=== PATIENT | male | born 1980 | race Hispanic/Latino ===

== ENCOUNTER 2016-09-10 19:51 | Emergency (ER) | payer OTHER ==
[2016-09-11 08:45] VITALS: BMI 30.4
== END 2016-09-10 20:24 | disposition left against medical advice (07) ==
LOC: ED 19:51
DX: Z02.89 Encounter for other administrative examinations (principal); R00.2 Palpitations

== ENCOUNTER 2016-09-11 08:38 | Emergency (ER) | payer OTHER ==
[2016-09-11 08:45] VITALS: BMI 30.4
[2016-09-11 08:50] VITALS: RESP 18; TEMP 98.4
--- NOTE | 2016-09-11 09:28 | ED PDOC ---
Arrival/HPI - General Chief Complaint: Anxiety Time Seen by Provider: 09/11/16 09:14 Historian: Patient - History of Present Illness Narrative History of Present Illness (Text): 09/11/16 09:19 This 36 yo male presents to this emergency department stating he does not feel well, and he feels anxious. Patient is requesting IVF. ER triage noted Dr. Ayala had sent patient to emergency department for evaluation. Patient denies SI, or HI. Denies hallucination, or paranoia. Time/Duration: Other (chronic) Context: Home Past Medical History - Provider Review Nursing Documentation Reviewed: Yes - Psychiatric Hx Anxiety: Yes Hx Substance Use: No Family/Social History - Physician Review Nursing Documentation Reviewed: Yes Family/Social History: No Known Family HX Smoking Status: Unknown If Ever Smoked Hx Alcohol Use: No Hx Substance Use: No Allergies/Home Meds Allergies/Adverse Reactions: Allergies No Known Allergies Allergy (Verified 09/12/16 01:20) Home Medications: Home Meds Medication Instructions Recorded Confirmed No Known Home Med 09/11/16 09/12/16 Review of Systems - Review of Systems Constitutional: Normal. absent: Fatigue, Weight Change, Fevers Eyes: Normal ENT: Normal Respiratory: Normal. absent: SOB, Cough, Sputum Cardiovascular: Normal. absent: Chest Pain Gastrointestinal: Normal. absent: Abdominal Pain, Nausea, Vomiting Genitourinary Male: Normal. absent: Dysuria, Frequency, Hematuria Musculoskeletal: Normal. absent: Back Pain Skin: Normal. absent: Rash Neurological: Normal. absent: Headache, Dizziness Endocrine: Normal Hemo/Lymphatic: Normal Psychiatric: Normal Physical Exam Vital Signs Temp Pulse Resp BP Pulse Ox 09/11/16 11:22 77 18 148/82 96 09/11/16 10:02 85 18 150/95 H 96 09/11/16 08:39 98.4 F 125 H 18 171/88 H 100 Temperature: Afebrile Blood Pressure: Normal Pulse: Regular Respiratory Rate: Normal Appearance: Positive for: Well-Appearing, Non-Toxic, Comfortable Pain Distress: None Mental Status: Positive for: Alert and Oriented X 3 - Systems Exam Head: Present: Atraumatic, Normocephalic Pupils: Present: PERRL Extroacular Muscles: Present: EOMI Conjunctiva: Present: Normal Mouth: Present: Moist Mucous Membranes Neck: Present: Normal Range of Motion Respiratory/Chest: Present: Clear to Auscultation, Good Air Exchange. No: Respiratory Distress, Accessory Muscle Use Cardiovascular: Present: Regular Rate and Rhythm, Normal S1, S2. No: Murmurs Abdomen: Present: Normal Bowel Sounds. No: Tenderness, Distention, Peritoneal Signs Back: Present: Normal Inspection Upper Extremity: Present: Normal Inspection. No: Cyanosis, Edema Lower Extremity: Present: Normal Inspection. No: Edema Neurological: Present: GCS=15, CN II-XII Intact, Speech Normal Skin: Present: Warm, Dry, Normal Color. No: Rashes Psychiatric: Present: Alert, Oriented x 3, Depressed Mood. No: Suicidal Ideation, Homicidal Ideation, Delusional, Hallucinations, Intoxicated Medical Decision Making ED Course and Treatment: 09/11/16 10:27 Anna Guillermo PES screener examined patient. She stated patient had additional complains to her including chest pain. I had ordered EKG which shows NSR at 86 bpm. CXR was read as normal as per radiologist. PES screener clear patient to be discharged. Patient was given information from PES screener. Re-evaluation Time: 11:08 Reassessment Condition: Re-examined, Improved - Lab Interpretations Lab Results: 09/11/16 10:01 09/11/16 10:01 Lab Results 09/11/16 10:01: Urine Opiates Screen Negative, Urine Methadone Screen Negative, Ur Barbiturates Screen Negative, Ur Phencyclidine Scrn Negative, Ur Amphetamines Screen Negative, U Benzodiazepines Scrn Positive H, U Oth Cocaine Metabols Negative, U Cannabinoids Screen Negative 09/11/16 10:01: Alcohol, Quantitative < 10 09/11/16 10:01: Salicylates < 1 L, Acetaminophen < 10.0 L 09/11/16 10:01: Sodium 139, Potassium 3.8, Chloride 99, Carbon Dioxide 25, Anion Gap 19, BUN 14, Creatinine 1.0, Est GFR ( Amer) > 60, Est GFR (Non- Af Amer) > 60, Random Glucose 114 H, Calcium 9.8, Total Bilirubin 1.1, AST 20, ALT 36, Alkaline Phosphatase 75, Total Protein 8.6 H, Albumin 4.9 H, Globulin 3.8, Albumin/Globulin Ratio 1.3 09/11/16 10:01: Urine Color Yellow, Urine Appearance Sl cloudy, Urine pH 5.5, Ur Specific [place] >= 1.030, Urine Protein Negative, Urine Glucose (UA) Negative, Urine Ketones 40 H, Urine Blood Moderate H, Urine Nitrate Negative, Urine Bilirubin Small H, Urine Urobilinogen 0.2, Ur Leukocyte Esterase Negative , Urine RBC 1 - 3, Urine WBC Negative, Ur Epithelial Cells 0 - 2, Urine Bacteria Small, Urine Other Mucus 09/11/16 10:01: WBC 9.6, RBC 4.99, Hgb 15.3, Hct 43.4, MCV 87.0, MCH 30.7, MCHC 35.3, RDW 14.5, Plt Count 255, MPV 10.1, Gran % 90.6 H, Lymph % (Auto) 5.3 L, [place] % (Auto) 3.9, Eos % (Auto) 0.0 L, Baso % (Auto) 0.2, Gran # 8.70 H, Lymph # 0.5 L, [place] # 0.4, Eos # 0.0, Baso # 0.02 I have reviewed the lab results: Yes Interpretation: Abnormal lab values (mild hematuria) - RAD Interpretation Narrative RAD Interpretations (Text): 09/11/16 10:30 Accession No. : [id number] Patient Name / ID : SHEEBA BALDERAS / [id number] Exam Date : 09/11/2016 09:43:09 ( Approved ) Study Comment : Sex / Age : M / 36Y Creator : Gilma Sim MD Dictator : Gilma Sim MD Blasting Entryman : Medical Billing Associate : Gilma Sim MD Approver2 : Report Date : 09/11/2016 10:15:51 My Comment : PROCEDURE: CHEST RADIOGRAPH, 1 VIEW HISTORY: PES eval COMPARISON: None. FINDINGS: LUNGS: Clear. PLEURA: No pneumothorax or pleural fluid seen. CARDIOVASCULAR: Normal. OSSEOUS STRUCTURES: No significant abnormalities. VISUALIZED UPPER ABDOMEN: Normal. OTHER FINDINGS: None. IMPRESSION: Clear lungs. Please note that chest radiographs have low sensitivity for small pulmonary nodules. If indicated, chest CT should be obtained. Radiology Orders: 09/11/16 09:30 CHEST PORTABLE [RAD] Stat - EKG Interpretation Interpreted by ED Physician: Yes (NSR@ 86bpm. Normal interval, No ST changes) Type: 12 lead EKG Comparison: No previous EKG avail. Disposition/Present on Arrival - Present on Arrival Any Indicators Present on Arrival: No History of DVT/PE: No History of Uncontrolled Diabetes: No Urinary Catheter: No History of Decub. Ulcer: No History Surgical Site Infection Following: None - Disposition Have Diagnosis and Disposition been Completed?: Yes Diagnosis: Anxiety, Hematuria Disposition: HOME/ ROUTINE Disposition Time: 11:01 Patient Plan: Discharge Patient Problems: Current Active Problems Problem Status Onset Anxiety Acute Paranoid Acute Condition: GOOD Discharge Instructions (ExitCare): Generalized Anxiety Disorder (ED), Acute Hematuria (ED) Additional Instructions: Call private doctor for follow up visit in 1-2 days. Continue with home medication, and Call Dr. Ayala. Return to emergency if symptoms worsen. Referrals: [employer] [facility], [Non-Staff] - Follow up with primary Oseas Ayala MD [Staff Provider] - Follow up with primary Parker Suazo MD [Staff Provider] - Follow up with primary
[2016-09-11 10:03] LABS: ADD MANUAL DIFF? NO
[2016-09-11 10:09] VITALS: O2SAT 96
[2016-09-11 10:17] LABS: ALB/GLOB RATIO 1.3 (1.1-1.8); ALKALINE PHOSPHATASE 75 U/L (38-133); ALT/SGPT 36 U/L (7-56); AST/SGOT 20 U/L (15-59); BILIRUBIN,TOTAL 1.1 mg/dL (0.2-1.3); BLOOD UREA NITROGEN 14 mg/dL (7-21); CALCIUM 9.8 mg/dL (8.4-10.5); CARBON DIOXIDE 25 mmol/L (21-33); CHLORIDE 99 mmol/L (98-107); GFR AFRICAN-AMERICAN > 60; GLUCOSE,RANDOM 114 mg/dL (70-110); POTASSIUM 3.8 mmol/L (3.6-5.0); SODIUM 139 mmol/L (132-148); TOTAL PROTEIN 8.6 g/dL (5.8-8.3)
--- NOTE | 2016-09-11 10:17 | RAD ---
PROCEDURE: CHEST RADIOGRAPH, 1 VIEW HISTORY: PES eval COMPARISON: None. FINDINGS: LUNGS: Clear. PLEURA: No pneumothorax or pleural fluid seen. CARDIOVASCULAR: Normal. OSSEOUS STRUCTURES: No significant abnormalities. VISUALIZED UPPER ABDOMEN: Normal. OTHER FINDINGS: None. IMPRESSION: Clear lungs. Please note that chest radiographs have low sensitivity for small pulmonary nodules. If indicated, chest CT should be obtained.
[2016-09-11 10:27] LABS: BASO # 0.02 K/mm3 (0.0-2.0); BASO % 0.2 % (0.0-3.0); GRAN % 90.6 % (50.0-68.0); HEMATOCRIT 43.4 % (42.0-52.0); LYMPH # 0.5 (1.2-3.4); LYMPH % 5.3 % (22.0-35.0); MEAN CORPUSCULAR HEMOGLOBIN 30.7 pg (25.0-35.0); MEAN CORPUSCULAR HGB CONC 35.3 g/dl (31.0-37.0); MEAN PLATELET VOLUME 10.1 fl (7.0-11.0); MONO # 0.4 (0.1-0.6); MONO % 3.9 % (1.0-6.0); PLATELET COUNT 255 10^3/uL (120.0-450.0); RED CELL DISTRIBUTION WIDTH 14.5 % (11.5-14.5); WHITE BLOOD COUNT 9.6 10^3/ul (4.5-11.0)
[2016-09-11 10:29] LABS: PH,URINE 5.5 (4.7-8.0); URINE BILIRUBIN SMALL (NEGATIVE); URINE BLOOD MODERATE (NEGATIVE); URINE GLUCOSE (UA) NEGATIVE (NEGATIVE); URINE KETONE 40 mg/dL (NEGATIVE); URINE LEUKOCYTE ESTERASE NEGATIVE Leu/uL (NEGATIVE); URINE PROTEIN NEGATIVE mg/dL (<30 mg/dL); URINE UROBILINOGEN 0.2 E.U./dL (<1 E.U./dL)
[2016-09-11 10:34] LABS: URINE APPEARANCE SL CLOUDY (CLEAR); URINE BACTERIA SMALL (NEG); URINE COLOR YELLOW (YELLOW); URINE EPITHELIAL CELLS 0 - 2 /hpf (0-5); URINE WBC NEGATIVE /hpf (0-6)
[2016-09-11 11:23] VITALS: BP 148/82; PULSE 77
--- NOTE | 2016-09-12 10:14 | CARD ---
APPROVED REPORT EKG Measurement Heart [id number] <Conclusion> Normal sinus rhythm Normal ECG
== END 2016-09-11 11:20 | disposition home or self-care (01) ==
LOC: ED 08:38
DX: F41.9 Anxiety disorder, unspecified (principal); R31.9 Hematuria, unspecified

== ENCOUNTER 2016-09-11 18:48 | Inpatient (IN) | payer MEDICAID, OTHER ==
[2016-09-11 18:48] VITALS: BMI 30.4
--- NOTE | 2016-09-11 19:12 | ED PDOC ---
Arrival/HPI - General Chief Complaint: Anxiety Time Seen by Provider: 09/11/16 18:49 Historian: Patient - History of Present Illness Narrative History of Present Illness (Text): 09/11/16 19:26 36 y/o male, no pmh, psychiatric history of possible anxiety/drug abuse, nkda, complaining of anxiety with the chest pain started today. Pt. stated that he was seen here earlier, seen by the pes and discharge home, stated that he feels anxious and causing him the chest pain, no palpitation, no night sweat, numbness or tingling, no palpitation, no rash, no other medical or psychological complaints. 09/11/16 21:20 Pt. is send in by the psychiatrist DR. Colon due to the agitation and paranoid behavior, here for the admission. Past Medical History - Provider Review Nursing Documentation Reviewed: Yes - Infectious Disease Hx of Infectious Diseases: None - Cardiac Hx Cardiac Disorders: No - Pulmonary Hx Tuberculosis: No - Neurological HX Cerebrovascular Accident: No Hx Seizures: No - Hematological/Oncological Hx Cancer: No - Genitourinary/Gynecological Hx Sexually Transmitted Diseases: No - Psychiatric Hx Anxiety: Yes Hx Substance Use: No Family/Social History - Physician Review Nursing Documentation Reviewed: Yes Family/Social History: Unknown Family HX Smoking Status: Unknown If Ever Smoked Hx Alcohol Use: No Hx Substance Use: No Allergies/Home Meds Allergies/Adverse Reactions: Allergies No Known Allergies Allergy (Verified 09/12/16 01:20) Home Medications: Home Meds Medication Instructions Recorded Confirmed No Known Home Med 09/11/16 09/12/16 Review of Systems - Review of Systems Constitutional: absent: Fatigue, Fevers Eyes: absent: Vision Changes ENT: absent: Hearing Changes Respiratory: absent: SOB, Cough Cardiovascular: Chest Pain Gastrointestinal: absent: Abdominal Pain, Nausea, Vomiting Genitourinary Male: absent: Dysuria, Frequency, Hematuria Musculoskeletal: absent: Arthralgias, Back Pain, Neck Pain Skin: absent: Rash, Pruritis, Skin Lesions Neurological: absent: Headache, Dizziness, Focal Weakness, Gait Changes, Facial Droop Psychiatric: Anxiety. absent: Depression, Suicidal Ideation Physical Exam Vital Signs Reviewed: Yes Vital Signs Temp Pulse Resp BP Pulse Ox 09/11/16 23:58 78 15 157/90 H 98 09/11/16 22:54 70 18 164/85 H 99 09/11/16 21:01 71 16 146/102 H 94 L 09/11/16 18:48 98.1 F 83 18 158/101 H 98 Temperature: Afebrile Blood Pressure: Hypertensive Pulse: Regular Respiratory Rate: Normal Appearance: Positive for: Well-Appearing, Non-Toxic, Uncomfortable Pain Distress: Moderate Mental Status: Positive for: Alert and Oriented X 3 - Systems Exam Head: Present: Atraumatic, Normocephalic Pupils: Present: PERRL Extroacular Muscles: Present: EOMI Conjunctiva: Present: Normal Mouth: Present: Moist Mucous Membranes Neck: Present: Normal Range of Motion Respiratory/Chest: Present: Clear to Auscultation, Good Air Exchange. No: Respiratory Distress, Accessory Muscle Use Cardiovascular: Present: Regular Rate and Rhythm, Normal S1, S2. No: Murmurs Abdomen: Present: Tenderness (+epigastric tenderness, negative lopez signs, no flank tenderness. ), Normal Bowel Sounds. No: Distention, Peritoneal Signs Back: Present: Normal Inspection Upper Extremity: Present: Normal Inspection. No: Cyanosis, Edema Lower Extremity: Present: Normal Inspection. No: Edema Neurological: Present: GCS=15, CN II-XII Intact, Speech Normal, Motor Func Grossly Intact, Gait Normal, Memory Normal Skin: Present: Warm, Dry, Normal Color. No: Rashes Lymphatic: No: Cervical Adenopathy Psychiatric: Present: Alert, Oriented x 3, Normal Insight, Normal Concentration , Anxious Medical Decision Making ED Course and Treatment: 09/11/16 19:12 -Labs reviewed from today's earlier visit, UDS show +benzo, will add additional labs. -didimer/troponin -pepcid and ativan with IVF -chest x-ray -EKG: NSR @ 87 BPM, no ST elevation or depression, no T wave inversion, compared with previous ekg. -Chest xray show -Labs 09/11/16 19:49 -pt. refused lab works, request medications first, pepcid po and ativan 1mg IM 09/11/16 21:24 -Pt. agreed to have the blood work. -I received the call from the psychiatrist Dr. colon and the aunt, stated that the patient has been very paranoid and agitated at home, will need evaluation. this is the second time the patient is in the ER for the same psychological complaints, will need further evaluation. 09/11/16 21:52 -Pt. feels much better. -Dimer negative, troponin negative, Thyroid profile negative. -Pt.is medically stable and clear for the PES evaluation -MATIAS Valera is aware and will come to screen the patient. 09/11/16 22:54 -MATIAS Valera evaluated the patient, spoke to Dr. Colon, suggest admission for paranoid/anxiety behavior. Pt. agreed to be admitted. -I discussed with Dr. De Souza, he will put in the admission. - Lab Interpretations Lab Results: Lab Results 09/11/16 20:50: Free T4 0.94, TSH 3rd Generation 1.21, Alcohol, Quantitative < 10 09/11/16 20:50: D-Dimer, Quantitative 0.19 09/11/16 20:50: Lactate Dehydrogenase 446, Total Creatine Kinase 90, Troponin I < 0.01 I have reviewed the lab results: Yes Interpretation: No clinic. lab abnormalty - RAD Interpretation Radiology Orders: 09/11/16 19:11 CHEST PORTABLE [RAD] Stat no active disease Clinic Assistant: Radiologist - Medication Orders Current Medication Orders: Acetaminophen (Tylenol 325mg Tab) 650 mg PO Q4H PRN PRN Reason: Pain, Mild (1-3) Clonazepam (Klonopin) 1 mg PO AMHS GRABIEL PRN Reason: Protocol Last Admin: 09/12/16 09:30 Dose: Not Given Non-Admin Reason: Patient Refused Lorazepam (Ativan) 0.5 mg PO Q4H PRN; Protocol PRN Reason: Anxiety Magnesium Hydroxide (Milk Of Magnesia) 30 ml PO DAILY PRN PRN Reason: Constipation Risperidone (Risperdal Tab) 2 mg PO AMHS GRABIEL PRN Reason: Protocol Last Admin: 09/12/16 09:30 Dose: Not Given Non-Admin Reason: Patient Refused Zolpidem Tartrate (Ambien) 10 mg PO HS PRN; Protocol PRN Reason: Insomnia Discontinued Medications Famotidine (Pepcid) 20 mg PO STAT STA Stop: 09/11/16 19:50 Last Admin: 09/11/16 20:05 Dose: 20 mg Sodium Chloride (Sodium Chloride 0.9%) 1,000 mls @ 999 mls/hr IV .Q1H1M STA Stop: 09/11/16 20:20 Last Admin: 09/11/16 21:01 Dose: Not Given Non-Admin Reason: Patient Refused Lorazepam (Ativan) 1 mg PO ONCE ONE PRN Reason: Protocol Stop: 09/11/16 19:52 Last Admin: 09/11/16 20:05 Dose: 1 mg Re-Assess: Reassess Psych Meds Document 09/11/16 21:05 DCP (Rec: 09/12/16 01:53 DCP [id number]) Reassess Psych Med Effective Re-Assess: MAR Pain Assessment Document 09/12/16 00:18 [facility] (Rec: 09/12/16 00:19 [id number] Pain Reassessment Is this a pain reassessment? No Description Pain not relieved and LIP/MD was pt had a postive results with notified ativan - PA / LAWN CARE SPECIALIST / Resident Statement MD/DO has reviewed & agrees with the documentation as recorded. Disposition/Present on Arrival - Present on Arrival Any Indicators Present on Arrival: No History of DVT/PE: No History of Uncontrolled Diabetes: No Urinary Catheter: No History of Decub. Ulcer: No History Surgical Site Infection Following: None - Disposition Have Diagnosis and Disposition been Completed?: Yes Diagnosis: Paranoid, Anxiety Disposition: HOSPITALIZED Disposition Time: 21:53 Patient Plan: Admission Patient Problems: Current Active Problems Problem Status Onset Anxiety Acute Paranoid Acute Condition: STABLE
[2016-09-11] MEDS ORDERED: Sodium Chloride 0.9% 1,000 ML IV STA (19:20)
[2016-09-11 21:30] LABS: ALCOHOL SERUM < 10 mg/dL (0-10)
[2016-09-11 21:42] LABS: TROPONIN I < 0.01 ng/mL
[2016-09-11 21:45] LABS: FREE T4 0.94 ng/dL (0.78-2.19)
[2016-09-11 21:59] LABS: THYROID STIMULATING HORMONE 1.21 mIU/mL (0.46-4.68)
[2016-09-12] VITALS: O2SAT 98
[2016-09-12] MEDS ORDERED: Magnesium Hydroxide Susp 30 ml UD PO PRN (01:26)
[2016-09-12 08:37] LABS: CHOLESTEROL 231 mg/dL (130-200); GLUCOSE,FASTING 95 mg/dL (65-110)
--- NOTE | 2016-09-12 09:09 | RAD ---
PROCEDURE: CHEST RADIOGRAPH, 1 VIEW HISTORY: medical clearance COMPARISON: 09/11/2016 FINDINGS: LUNGS: Clear. PLEURA: No pneumothorax or pleural fluid seen. CARDIOVASCULAR: Normal. OSSEOUS STRUCTURES: No significant abnormalities. VISUALIZED UPPER ABDOMEN: Normal. OTHER FINDINGS: None. IMPRESSION: Clear lungs. No significant interval change.
[2016-09-12 09:10] LABS: TROPONIN I < 0.01 ng/mL
--- NOTE | 2016-09-12 10:08 | HP ---
The patient is a single 36-year-old white male with a history of anxiety, paranoia, opiate abuse, 3 p rior hospitalizations (most recently [facility] a couple months ago), no suicide attempts, cur rently in treatment with Dr. Ayala the past few months. However, noncompliant with prescribed medic ation of Klonopin who was admitted from the ER yesterday by Dr. Ayala to treat anxiety, agitation an d paranoid behavior. I reviewed recent notes and met with patient at bedside. He is oriented to tue and year and superficially oriented to circumstances. Does not appear entirely engaged with my qu estioning. However, he is responsive and responses are generally relevant to questioning. Indicates that he was admitted for anxiety and cannot given an explanation why he did not take the medication prescribed by Dr. Ayala. He denies any drug or alcohol use prior to admission that could have been contributing to his symptoms. His affect is a little oddly related and preoccupied. However, he den ies having any hallucinations. He also denies having paranoia at this time. There have been no beha vioral issues on the unit, but he has been noted to be thought blocked or guarded with staff members as well as this provider. Thus far, he denies having any side effects from his medications or any di scomfort or pain, and is agreeable to treatment with Klonopin and Risperdal. PAST PSYCHIATRIC HISTORY: The patient reports 3 prior hospitalizations, most recently hospitalized a couple of months ago at [facility]. The patient reports that he was being treated for opiate abuse. The patient denies any history of suicide attempts. The patient has currently been in treat ment with Dr. Ayala for the last few months and being prescribed Klonopin, which he has not been ricco ing. The patient cannot recall any other medication trials. SOCIAL HISTORY: The patient was born and raised in [place]. He is single without any children an d he lives with his mother. He indicates that he graduated from high school and college, and he is c urrently unemployed. He denies any current drug or alcohol or tobacco issues, but does report that h e abused opiates, but has not taken any "in a while." The patient does not want to quantify his last use to this provider. CURRENT VITAL SIGNS: 98.2, 90, 133/84 and 20. These were taken at 7:09 a.m. RECENT LABORATORIES: Include on 09/12/2016, fasting glucose is 95, lactate dehydrogenase of 308, whic h is low. Total creatine kinase of 61 and troponins were less than 0.01 on 09/11 and 09/12. Triglycerides are 91, cholesterol is 231, which is elevated, LDL was 55, which is elevated, HDL was 4 0, which is normal limits. Free T4 is 0.94, which is normal. TSH third generation is 1.21, which is normal. Toxicology showed an alcohol less than 10. Please note that also on 09/11, CBC showed normal white blood cell, hemoglobin, hematocrit and platele t count. Chemistry on 09/11/2016 was within normal limits that is including LFTs. Toxicology was onl y positive for benzodiazepine on 09/11/2016. CURRENT MEDICATIONS: Klonopin 1 mg a.m. and at bedtime, Risperdal 2 mg a.m. and at bedtime, Ambien 1 0 mg at bedtime p.r.n. IMPRESSION: Anxiety disorder, not otherwise specified; psychosis, not otherwise specified; rule out paranoid schizophrenia; history of opiate abuse versus dependency. PLAN: 1. Group milieu and supportive therapy. 2. Will continue with Klonopin 1 mg a.m. and at bedtime for complaints of anxiety. 3. Will continue with Risperdal 2 mg a.m. and at bedtime for reported complaints of paranoia prior t o admission. 4. Will continue with Ambien 10 mg at bedtime p.r.n. for insomnia. 5. We are currently awaiting medical followup. Abdiel Lyman MD cc: [id number] TT: 09/12/2016 10:07:25 en
--- NOTE | 2016-09-12 10:35 | CARD ---
APPROVED REPORT EKG Measurement Heart [id number] <Conclusion> Normal sinus rhythm LVH by voltage PWNL No change
--- NOTE | 2016-09-12 10:58 | CP.PCM.HP ---
History of Present Illness - History of Present Illness History of Present Illness: MEDICAL CONSULTATION CC: "Chest pain, palpitations, panic attack" HPI: This is a 36 year old male with past medical history of anxiety who presented with complaint of left sided chest pain along with palpitations and anxiety. He states he has history of panic attacks and anxiety and usually these symptoms are associated with it. He denies any past medical or cardiac history. He denies any shortness of breath, abdominal pain, nausea or vomiting. He denies any dyspnea on exertion, LE edema or lightheadedness. He denies excessive caffeine intake or history of drugs or alcohol abuse. Patient seen and examined in his room in the psychiatric unit. He is not very conversive and answers with one or two words for most answers. He states his chest pain and palpitations has resolved. He denies any depression or thoughts of harming himself. PMH: anxiety PSH: denies Family History: denies any family history of cardiac disease Social History: unemployed; lives with mother; denies smoking, alcohol or illicit drug use Present on Admission - Present on Admission Any Indicators Present on Admission: No Review of Systems - Review of Systems All systems: reviewed and no additional remarkable complaints except - Constitutional Constitutional: absent: Anorexia, Chills - EENT Eyes: absent: Change in Vision Ears: absent: Dizziness - Cardiovascular Cardiovascular: As Per HPI, Chest Pain, Palpitations. absent: Dyspnea, Edema, Lightheadedness - Respiratory Respiratory: absent: Cough, Dyspnea - Gastrointestinal Gastrointestinal: absent: Abdominal Pain, Nausea, Vomiting - Genitourinary Genitourinary: absent: Dysuria - Musculoskeletal Musculoskeletal: absent: Back Pain - Neurological Neurological: absent: Dizziness, Numbness, Tremor, Weakness - Psychiatric Psychiatric: Anxiety, Panic Attacks Past Patient History - Infectious Disease Hx of Infectious Diseases: None - Past Social History Smoking Status: Never Smoked Alcohol: None Drugs: Denies Home Situation {Lives}: With Family - CARDIAC Hx Cardiac Disorders: No - PULMONARY Hx Tuberculosis: No - NEUROLOGICAL HX Cerebrovascular Accident: No Hx Seizures: No - HEENT Hx HEENT Problems: No - RENAL Hx Chronic Kidney Disease: No - ENDOCRINE/METABOLIC Hx Endocrine Disorders: No - HEMATOLOGICAL/ONCOLOGICAL Hx Cancer: No - INTEGUMENTARY Hx Dermatological Problems: No - MUSCULOSKELETAL/RHEUMATOLOGICAL Hx Musculoskeletal Disorders: No - GASTROINTESTINAL Hx Gastrointestinal Disorders: No - GENITOURINARY/GYNECOLOGICAL Hx Sexually Transmitted Disorders: No - PSYCHIATRIC Hx Anxiety: Yes Hx Substance Use: No - SURGICAL HISTORY Hx Surgeries: No - ANESTHESIA Hx Anesthesia: No Meds Allergies/Adverse Reactions: Allergies Allergy/AdvReac Type Severity Reaction Status Date / Time No Known Allergies Allergy Verified 09/12/16 01:20 Physical Exam - Constitutional Appears: Well, No Acute Distress - Head Exam Head Exam: NORMAL INSPECTION - Eye Exam Eye Exam: EOMI - ENT Exam ENT Exam: Normal Exam - Neck Exam Neck exam: Positive for: Full Rom - Respiratory Exam Respiratory Exam: Clear to Auscultation Bilateral. absent: Rales, Wheezes - Cardiovascular Exam Cardiovascular Exam: REGULAR RHYTHM, +S1, +S2 - GI/Abdominal Exam GI & Abdominal Exam: Normal Bowel Sounds, Soft. absent: Organomegaly, Tenderness - Extremities Exam Extremities exam: Positive for: normal inspection - Neurological Exam Neurological exam: Alert, Oriented x3 - Psychiatric Exam Psychiatric exam: Normal Affect, Normal Mood Results - Vital Signs Recent Vital Signs: Last Vital Signs Temp 98.2 F 09/12/16 07:09 Pulse 90 09/12/16 07:09 Resp 20 09/12/16 07:09 BP 133/84 09/12/16 07:09 Pulse Ox 98 09/11/16 23:58 - Labs Labs: Laboratory Results - last 24 hr 09/12/16 08:00 Fasting Glucose 95 Lactate Dehydrogenase 308 L Total Creatine Kinase 61 Troponin I < 0.01 Triglycerides 91 Cholesterol 231 H LDL Cholesterol Direct 155 H HDL Cholesterol 50 - EKG Data EKG Interpreted by: Myself - EKG Data EKG comments: NSR at [address]-t changes Assessment & Plan - Assessment and Plan (Free Text) Plan: 36 year old male with past medical history of anxiety who presented with complaint of chest pain associated with anxiety and palpitations. 1. Atypical chest with palpitations - Resolved. Serial cardiac enzymes x 2 are negative. EKG does not show any acute ST-T changes. D-dimer was negative and TFTs are normal. Alcohol level was negative Utox was positive only for benzodiazepines. Symptoms possibly related to panic attacks / anxiety. Will obtain one more cardiac enzyme this afternoon and check an echocardiogram. 2. Anxiety / panic attacks - Continue with management as per psychiatrist. Patient is currently on klonopin and ativan prn. 3. Dyslipidemia - Cholesterol 231. LDL 155. HDL 50. Counselled on diet modifications with low fat, low cholesterol diet. Recommend to repeat lipid panel in 3-6 months. If LDL still elevated despite diet modifications can start statin. Thank you Dr. Ayala for allowing us to participate in the care of this patient.
[2016-09-12 17:32] LABS: TROPONIN I < 0.01 ng/mL
--- NOTE | 2016-09-13 15:34 | PCM.PYCHPN ---
Psychiatric Progress Note - Psychiatric Progress Note Patient seen today, length of contact: 35 Patient Chief Complaint: anxiety, depression, paranoia Problems Identified/Issues Discussed: Patient had initially complained of palpitations and anxiety Medical Problems: Has suffered a number of cerebral injuries (loss of consciousness ((or concussions). Has had several orthopedic surgeries on hip Diagnostic Results: As noted in chart DSM 5 Symptoms Update: Seems less anxious than described on admission, affect somewhat brighter, is more compliant with the medication. Did not overtly psychotic. Not confused. Medication Change: No Medical Record Reviewed: Yes Consults ordered or reviewed: Review Mental Status Examination - Cognitive Function Orientation: Person, Place, Situation, Time Memory: Intact Attention: Poor Concentration: WNL Association: [facility] Fund of Knowledge: [facility] Decription of patient's judgement and insights: Marginal - Mood Mood: Anxious - Affect Affect: Blunted - Speech Speech: Appropriate - Formal Thought Process Formal Thought Process: No Impairment Psychotic Thoughts and Behaviors: Surgeon, patient somewhat guarded and can be paranoid Additional comments: Not presently - Suicidal Ideation Suicidal Ideation: No - Homicidal Ideation Homicidal Ideation: No Goal/Treatment Plan - Goal/Treatment Plan Need for Continued Stay: Remain at risks for inpatient hospitalization, Severe depression anxiety, Discharge may exacerbated symptoms Progress Toward Problem(s) and Goals/Treatment Plan: Mood, affect, and paranoia improving. Seems to be more focused cognitively. Still has trouble excepting the need for medication but is compliant with medication presently. - Smoking Cessation Smoking Cessation Initiated: Yes
--- NOTE | 2016-09-14 19:59 | CARD ---
APPROVED REPORT EXAM: Two-dimensional and M-mode echocardiogram with Doppler and color Doppler. INDICATION LV Function:SystolicDiastolic 2D DIMENSIONS Left Atrium (2D)3.4 (1.6-4.0cm)IVSd1.1 (0.7-1.1cm) LVDd5.6 (3.9-5.9cm)PWd1.2 (0.7-1.1cm) LVDs3.8 (2.5-4.0cm)FS (%) 32.9 % LVEF (%)50.0 (>50%) M-Mode DIMENSIONS Aortic Root3.80 (2.2-3.7cm)Aortic Cusp Exc.2.50 (1.5-2.0cm) Aortic Valve AoV Peak Iqspqucm886.0cm/Shweta Peak GR.6mmHg Mitral Valve MV E Tjlfoloq04.1cm/sMV A Ajapsndt83.7cm/sE/A ratio0.9 TDI E/Lateral E'0.0E/Medial E'0.0 Tricuspid Valve TR Peak Sandgyei385ze/sRAP [id number] Peak Gr.17mmHg [id number] LEFT VENTRICLE The left ventricle is normal size. There is normal left ventricular wall thickness. Left ventricle ejection fraction is borderline. There is normal LV segmental wall motion. Transmitral Doppler flow pattern is Grade I-abnormal relaxation pattern. RIGHT VENTRICLE The right ventricle is normal size. There is normal right ventricular wall thickness. The right ventricular systolic function is normal. ATRIA The left atrium size is normal. The right atrium size is normal. AORTIC VALVE The aortic valve is normal in structure. No aortic regurgitation is present. MITRAL VALVE The mitral valve is normal in structure. There is no mitral valve regurgitation noted. TRICUSPID VALVE There is no pulmonary hypertension. GREAT VESSELS The aortic root is normal in size. The IVC is normal in size and collapses >50% with inspiration. PERICARDIAL EFFUSION There is no pericardial effusion. <Conclusion> The left ventricle is normal size. There is normal left ventricular wall thickness. Left ventricle ejection fraction is borderline. Transmitral Doppler flow pattern is Grade I-abnormal relaxation pattern.
--- NOTE | 2016-09-15 02:04 | PN ---
DATE: 09/14/2016 The patient has signed out against medical advice (a 48-hour notice). He has been noted to be pacing in the hallway and hypervigilant, while denying such. The patient remains reluctant to take his medication, but does so with encouragement. He is being maintained psychotropically on Klonopin 1 mg a.m. and at bedtime, Risperdal 2 mg a.m. and at bedtime. Blood pressure 102/64, pulse 97, temperature 97.7, respiratory rate 20. Oseas Ayala MD, PhD cc: [id number] TT: 09/15/2016 01:38:40 Confirmation # [id number] Dictation # [id number] vn
--- NOTE | 2016-09-15 23:19 | PCM.PYCHPN ---
Psychiatric Progress Note - Psychiatric Progress Note Patient seen today, length of contact: 35 Patient Chief Complaint: anxiety, depression, paranoia Problems Identified/Issues Discussed: Patient had initially complained of palpitations and anxiety Medical Problems: Has suffered a number of cerebral injuries (loss of consciousness ((or concussions). Has had several orthopedic surgeries on hip Diagnostic Results: As noted in chart DSM 5 Symptoms Update: remains constricted,paranoid. discussed possibiity of depot injectios Medication Change: No Medical Record Reviewed: Yes Consults ordered or reviewed: Review Mental Status Examination - Cognitive Function Orientation: Person, Place, Situation, Time Memory: Intact Attention: Poor Concentration: WNL Association: [facility] Fund of Knowledge: [facility] Decription of patient's judgement and insights: Marginal - Mood Mood: Anxious - Affect Affect: Blunted - Speech Speech: Appropriate - Formal Thought Process Formal Thought Process: No Impairment Psychotic Thoughts and Behaviors: Surgeon, patient somewhat guarded and can be paranoid - Suicidal Ideation Suicidal Ideation: No - Homicidal Ideation Homicidal Ideation: No Goal/Treatment Plan - Goal/Treatment Plan Need for Continued Stay: Remain at risks for inpatient hospitalization, Severe depression anxiety, Discharge may exacerbated symptoms Progress Toward Problem(s) and Goals/Treatment Plan: Mood, affect, and paranoia improving. Seems to be more focused cognitively. Still has trouble excepting the need for medication but is compliant with medication presently.on september 15,more cooperative,still guarded
[2016-09-16] MEDS ORDERED: RISPERIDAL Consta 50 MG INJ IM ONE (12:30)
--- NOTE | 2016-09-16 21:51 | PCM.PYCHPN ---
Psychiatric Progress Note - Psychiatric Progress Note Patient seen today, length of contact: 35 Patient Chief Complaint: anxiety, depression, paranoia Problems Identified/Issues Discussed: Patient had initially complained of palpitations and anxiety Medical Problems: Has suffered a number of cerebral injuries (loss of consciousness ((or concussions). Has had several orthopedic surgeries on hip Diagnostic Results: As noted in chart DSM 5 Symptoms Update: Seems,. Affect is very constricted. Agrees to go on Risperdal Consta injection. Is paranoid. Medication Change: Yes (Started on Risperdal Consta) Medical Record Reviewed: Yes Consults ordered or reviewed: Review Mental Status Examination - Cognitive Function Orientation: Person, Place, Situation, Time Memory: Intact Attention: Poor Concentration: WNL Association: [facility] Fund of Knowledge: [facility] Decription of patient's judgement and insights: Marginal - Mood Mood: Anxious, Other - Affect Affect: Blunted - Speech Speech: Appropriate, Soft - Formal Thought Process Formal Thought Process: No Impairment Psychotic Thoughts and Behaviors: Surgeon, patient somewhat guarded and can be paranoid - Suicidal Ideation Suicidal Ideation: No - Homicidal Ideation Homicidal Ideation: No Goal/Treatment Plan - Goal/Treatment Plan Need for Continued Stay: Remain at risks for inpatient hospitalization, Severe depression anxiety, Discharge may exacerbated symptoms Progress Toward Problem(s) and Goals/Treatment Plan: Mood, affect, and paranoia improving. Seems to be more focused cognitively. Still has trouble excepting the need for medication but is compliant with medication presently.on september 15,more cooperative,still guarded On September 16 patient agreeable to being switched to respiratory constant long- acting injection. Also agrees for a referral to day program upon discharge
[2016-09-17 07:29] VITALS: BP 117/81; PULSE 64; RESP 20; TEMP 97.5
[2016-09-17] MEDS ORDERED: risperiDONE Consta 37.5 mg/2 ml Syr IM ONE (13:26)
[2016-09-17] MEDS ORDERED: RISPERDAL CONSTA 37.5 MG IM ONE (14:00)
--- NOTE | 2016-09-17 14:34 | PCM.PYCHPN ---
Psychiatric Progress Note - Psychiatric Progress Note Patient seen today, length of contact: 35 Patient Chief Complaint: anxiety, depression, paranoia Problems Identified/Issues Discussed: Patient had initially complained of palpitations and anxiety Medical Problems: Has suffered a number of cerebral injuries (loss of consciousness ((or concussions). Has had several orthopedic surgeries on hip Diagnostic Results: As noted in chart DSM 5 Symptoms Update: patient wall withdrawn. Less paranoid but remains paranoid. Asks me if nurses that are about to give him a respite TO injection are qualified Hopefully patient will follow up with a day program upon discharge I have of the impression that the patient's problems are not primarily drug related although that that does contribute, but rather patient has a primary psychiatric disorder. Medication Change: Yes (Started on Risperdal Consta) Medical Record Reviewed: Yes Mental Status Examination - Cognitive Function Orientation: Person, Place, Situation, Time Memory: Intact Attention: Poor Concentration: WNL Association: [facility] Fund of Knowledge: [facility] Decription of patient's judgement and insights: Marginal - Mood Mood: Anxious, Other - Affect Affect: Blunted - Speech Speech: Appropriate, Soft - Formal Thought Process Formal Thought Process: No Impairment Psychotic Thoughts and Behaviors: Surgeon, patient somewhat guarded and can be paranoid - Suicidal Ideation Suicidal Ideation: No - Homicidal Ideation Homicidal Ideation: No Goal/Treatment Plan - Goal/Treatment Plan Need for Continued Stay: Remain at risks for inpatient hospitalization, Severe depression anxiety, Discharge may exacerbated symptoms Progress Toward Problem(s) and Goals/Treatment Plan: Mood, affect, and paranoia improving. Seems to be more focused cognitively. Still has trouble excepting the need for medication but is compliant with medication presently.on september 15,more cooperative,still guarded On September 16 patient agreeable to being switched to respiratory constant long- acting injection. Also agrees for a referral to day program upon discharge On September 17 patient is to be discharged. He is not homicidal or suicidal. He is paranoid. He has agreed however to take a respite TO injection 37.5 mg and is willing to attend a day program to be arranged. - Smoking Cessation Smoking Cessation Initiated: Yes
--- NOTE | 2016-10-11 08:25 | DS ---
IDENTIFYING INFORMATION: The patient is a 36-year-old single white male who was admitted with intens e anxiety and palpitations. He also had a history of anxiety, paranoia, opiate abuse and 3 prior hospitalizations (most recently at [facility] approximately 2 months ago). The patient does not have any known suicide attempts. He had been under my care for the past 2 months but was noncompliant with prescribed medication consi sting of Klonopin. The patient was also noted to be paranoid. While patient denied a history of drug or alcohol use, he does have a history of substance use, (i.e. , opioids). On admission, he was noted to have a distant odd affect and was internally preoccupied but denied any psychotic ideation or paranoia. At times, the patient was noted to be thought blocking and guarded. The patient had been hospitalized recently at [facility], possibly for opioid abuse. The patient was born and raised in [place]. He resides with his mother. He graduated from [employer] and attended college where he graduated. He is unemployed. 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 On admission, he was purportedly taking Klonopin, Risperdal, and Ambien. His admitting diagnosis was anxiety disorder, not otherwise specified, rule out paranoid schizophreni a, history of opioid abuse versus dependency. The patient in the past reportedly tried to detox himself. He had been discharged from [facility] about 1 week prior to this present admission because according to the patient, he wanted to get a CT scan of his head because of a head trauma he feels he experienced while playing football, baseball and hockey. He could not explain why he was placed on the psychiatric unit there. He attributed his head trauma to sports involvement. He did report anti-inflammatory medication having been taken in the past. 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 He stated that his grandmother had become ill with cancer, and he started to care for her. He has never been and has no children. He reported his surgical procedures from ages [age] on his hip and back as well as injections. He had 2 prior inpatient drug rehabilitations, once at [facility] when he was discharged from oxycod one and OxyContin and also took medication without prescription. He had been admitted to [facility] 1 year ago because he was fainting which he attributed to h aving been overheated. He indicated that at one time he detoxed by staying in his mother's basement for 30 days. The patient was noted during his hospital course for anxiety, substance seeking, lack of insight, par anoia. He was started on Risperdal Consta 37.5 mg IM on 09/17, on the day of his discharge. LABORATORY TESTING: Including a nonreactive RPR, a negative drug screen. A biochemical profile that showed elevated cholesterol of 231, LDH cholesterol direct 155, lowered lactate dehydrogenase 308. He was discharged on Klonopin 1 mg a.m. and at bedtime and Risperdal Consta injection as noted. DISCHARGE DIAGNOSES: Chronic paranoid schizophrenia, opioid abuse -- by history, anxiety disorder, n ot otherwise specified. DISPOSITION: The patient was to continue psychiatric care with Dr. Ayala. Oseas Ayala MD, PhD cc: [id number] TT: 10/10/2016 12:34:00 ks
== END 2016-09-17 15:40 | disposition home or self-care (01) | DRG 430 ==
LOC: ED 18:48 → ERH 22:53 → PSYC 09-12 01:07
PROVIDERS: ADMIT Psychiatry & Neurology Addiction Medicine; ATTEND Psychiatry & Neurology Addiction Medicine
DX: F32.89 Other specified depressive episodes (principal); F22 Delusional disorders; F11.10 Opioid abuse, uncomplicated; E78.5 Hyperlipidemia, unspecified; F17.200 Nicotine dependence, unspecified, uncomplicated; F41.0 Panic disorder [episodic paroxysmal anxiety]; Z79.899 Other long term (current) drug therapy; R40.2412 Glasgow coma scale score 13-15, at arrival to emergency department